=== PATIENT | male | born 1955 | race African-American/Black ===

== ENCOUNTER 2017-06-01 11:39 | Emergency (ER) | payer OTHER, SELFPAY ==
[~2017-06-01] VITALS: Ht 182.9 cm; Wt 125.0 kg
[2017-06-01 11:52] VITALS: BP 133/89
[2017-06-01] MEDS ORDERED: TETANUS, DIPHTHERIA, PERTUSSIS VAC/PF 0.5ML (>7YR OLD) IM ONE (13:30)
== END 2017-06-01 13:59 | disposition home or self-care (01) ==
LOC: ER 13:44
DX: S61.412A Laceration without foreign body of left hand, initial encounter (principal); I10 Essential (primary) hypertension; W25.XXXA Contact with sharp glass, initial encounter; Y93.89 Activity, other specified; Y92.89 Other specified places as the place of occurrence of the external cause; Y99.8 Other external cause status
CPT/HCPCS: 90471; 90715; 99283; X7700; Z7610